=== PATIENT | female | born 1965 | race Caucasian/White ===

== ENCOUNTER 2017-12-05 10:20 | Day surgery (SDC) | payer OTHER, BC ==
[2017-12-05] MEDS ORDERED: FENTAnyl 50 MCG/ML VIAL (13:12)
[2017-12-05] MEDS ORDERED: MIDAZOLAM 1 MG/ML 2 ML INJ (13:13)
== END 2017-12-05 15:04 | disposition home or self-care (01) ==
LOC: GIL 10:20
DX: Z12.11 Encounter for screening for malignant neoplasm of colon (principal); D12.5 Benign neoplasm of sigmoid colon; K64.8 Other hemorrhoids
CPT/HCPCS: 45380; 88305